=== PATIENT | male | born 1960 | race Caucasian/White ===

== ENCOUNTER → 2021-02-23 | Outpatient (CLI) | payer OTHER ==
[~2021-02-23] MED LIST: ASPIRIN EC81 MG PO; ATORVASTATIN CA20 MG PO; CARDIZEM CD180 MG PO; ENTRESTO 24 MG1 EACH PO; FISH OIL 1,0001 EACH PO; FLEXERIL 10 MG10 MG PO; LASIX40 MG PO; LEVAQUIN500 MG PO; LOPRESSOR50 MG PO; MICROZIDE12.5 MG PO; NORVASC 5 MG TAB5 MG PO; TRAMADOL HCL50 MG PO
== END ==
LOC: ECHO 10:00
DX: I50.9 Heart failure, unspecified (principal); I08.2 Rheumatic disorders of both aortic and tricuspid valves
CPT/HCPCS: ECHO; 93306

== ENCOUNTER → 2021-05-18 | Outpatient (CLI) | payer OTHER | LOC: HEART 5 08:00 | DX: I49.3 Ventricular premature depolarization (principal) ==

== ENCOUNTER → 2021-06-14 | Outpatient (CLI) | payer OTHER | LOC: NM 06-09 13:00 | DX: I25.10 Atherosclerotic heart disease of native coronary artery without angina pectoris (principal); I49.3 Ventricular premature depolarization; I42.9 Cardiomyopathy, unspecified; I21.9 Acute myocardial infarction, unspecified | CPT/HCPCS: 78452; 93017; A9502; J2785 ==

== ENCOUNTER → 2021-07-07 | Outpatient (CLI) | payer OTHER ==
[2021-07-07 09:01] LABS: HEMOGLOBIN 14.8 gm/dl (14.0-17.5); WHITE BLOOD COUNT 12.3 K/UL (4.5-11.0)
[2021-07-07 09:21] LABS: BUN/CREATININE RATIO 12 (0-10)
== END ==
LOC: ECHO 08:09
PROVIDERS: Internal Medicine Cardiovascular Disease
DX: I42.9 Cardiomyopathy, unspecified (principal); I10 Essential (primary) hypertension
CPT/HCPCS: ECHO; 36415; 80053; 80061; 83735; 84443; 85025; 93306; Q9957